=== PATIENT | male | born 1965 | race African-American/Black ===

== ENCOUNTER 2019-04-09 21:12 | Emergency (ER) | payer MEDICARE ==
--- NOTE | 2019-04-09 21:54 | ED ---
Syncope/Near Syncope - HPI Summary HPI Summary: A 54 y/o male brought in by [facility] ambulance and accompanied by brother presents to [facility] with a chief complaint of syncope today. The patient rated his pain as a 0/10 in severity. He has a Hx of vertigo and says that out of nowhere he had to hold onto something because his vertigo came on suddenly. He denies having vertigo currently. He denies any headache, cough, congestion, runny nose, sore throat, SOB, palpitations, dysuria, back pain, rashes, fevers, abdominal pain, or urinary incontinence. The patient has chronic swelling of his legs. He claims that he eats and drinks water normally. He denies smoking or drinking. He is on Meclizine and denies taking bloodthinners. He has a Hx of glaucoma and HTN and takes his BP medications. He denies a Hx of DC. He denies smoking or EtOH use. [facility]. - History Of Current Complaint Chief Complaint: EDSyncope Hx Obtained From: Patient, Family/Lpn Care Manager, EMS Onset/Duration: Sudden Onset, Resolved Timing: Intermittent Episode Lasting Context: Witnessed Activity At Onset: Other - standing Associated Head Trauma: No Aggravating Factor(s): Nothing Alleviating Factor(s): Nothing Associated Signs And Symptoms: Negative - Allergies/Home Medications Allergies/Adverse Reactions: Allergies Allergy/AdvReac Type Severity Reaction Status Date / Time No Known Allergies Allergy Verified 01/11/16 13:35 Home Medications: Home Medications Loratadine [Allergy Relief] 10 mg PO PRN 04/09/19 [History] Tamsulosin CAP* [Flomax CAP*] 0.4 mg PO DAILY 04/09/19 [History Confirmed ] PMH/Surg Hx/FS Hx/Imm Hx Cardiovascular History: Denies: Hx Myocardial Infarction Sensory History: Reports: Hx Glaucoma Neurological History: Reports: Other Neuro Impairments/Disorders - vertigo Infectious Disease History: No Infectious Disease History: Denies: Traveled Outside the [place] in Last 30 Days - Family History Known Family History: Negative: Blood Disorder - Social History Alcohol Use: None Hx Substance Use: No Substance Use Type: Reports: None Hx Tobacco Use: No Review of Systems Negative: Fever ENT: Negative - congestion, runny nose Negative: Sore Throat Negative: Palpitations, Chest Pain Negative: Shortness Of Breath, Cough Negative: Abdominal Pain Negative: dysuria, hematuria, incontinence Positive: Edema. Negative: Myalgia Negative: Rash Positive: Syncope. Negative: Headache All Other Systems Reviewed And Are Negative: Yes Physical Exam - Summary Physical Exam Summary: Constitutional: Well-developed, Well-nourished, Alert. (-) Distressed Skin: Warm, Dry HENT: Normocephalic; Atraumatic Eyes: Conjunctiva normal Neck: Musculoskeletal ROM normal neck. (-) JVD, (-) Stridor, (-) Tracheal deviation, no neck pain, no midline C-spine tenderness Cardio: tachycardic, regular S1 S2, Heart sounds normal; Intact distal pulses; The pedal pulses are 2+ and symmetric. Radial pulses are 2+ and symmetric. Pulmonary/Chest wall: Effort normal. (-) Respiratory distress, (-) Wheezes, (-) Rales Abd: Soft, (-) tenderness, (-) Distension, (-) Guarding, (-) Rebound, belly protuberant secondary to obesity Musculoskeletal: (-) Edema Neuro: Alert, Oriented x3, coordination intact, no pronator drift Psych: Mood and affect Normal Triage Information Reviewed: Yes Vital Signs On Initial Exam: Initial Vitals Temp Pulse Resp BP Pulse Ox 100.9 F 100 22 178/100 93 04/09/19 21:23 04/09/19 21:23 04/09/19 21:23 04/09/19 21:23 04/09/19 21:23 Vital Signs Reviewed: Yes - Sharon Coma Scale Best Eye Response: 4 - Spontaneous Best Motor Response: 6 - Obeys Commands Best Verbal Response: 5 - Oriented Coma Scale Total: 15 Diagnostics - Vital Signs Vital Signs Temp Pulse Resp BP Pulse Ox 04/09/19 21:23 100.9 F 100 22 178/100 93 - Laboratory Result Diagrams: 04/09/19 22:06 04/09/19 22:06 Lab Statement: Any lab studies that have been ordered have been reviewed, and results considered in the medical decision making process. - Radiology CXR Radiology Interpretation Completed By: ED Physician Summary of Radiographic Findings: Cardiomegaly. No obvious consolidations. No obvious effusions. Pending official imaging report. - CT Brain CT Interpretation Completed By: Radiologist Summary of CT Findings: No acute intracranial abnormality. ED physician has reviewed this imaging report. - EKG 22:31 Cardiac Rate: NL - 95 bpm EKG Rhythm: Sinus Rhythm ST Segment: Non-Specific Summary of EKG Findings: An EKG at 22:31 reveals NSR at 95 bpm, nonspecific ST segment, borderline QT. No STEMI. Re-Evaluation - Re-Evaluation First Eval Re-Evaluation Time: 00:10 Change: Improved Comment: The patient has been persistently asymptomatic since before his arrival in the ED. His HR has been in the 80s and his BP has been around 150s/ 90s. He has longstanding HTN. His bilateral ears and TMs are normal. The patient is requesting discharge. Course/Dx Course Of Treatment: A 54 y/o male brought in by [facility] and accompanied by brother presents to [facility] with a chief complaint of syncope today. The physical exam revealed that the patient was tachycardic but had regular S1 S2, belly protuberant secondary to obesity, coordination intact, no pronator drift, no neck pain, no midline C-spine tenderness. Bloodwork, chemistries and urines obtained and are WNL. Brain CT impression: No acute intracranial abnormality. In the ED course the patient was given Lactated Ringers IV and Reglan IV. CXR impression: Cardiomegaly. No obvious consolidations. No obvious effusions. An EKG at 22:31 reveals NSR at 95 bpm, nonspecific ST segment, borderline QT. No STEMI. The patient has been persistently asymptomatic since before his arrival in the ED. His HR has been in the 80s and his BP has been around 150s/90s. He has longstanding HTN. His bilateral ears and TMs are normal. The patient is requesting discharge. The patient will be discharged and his brother will make sure that he follows up with his PCP. The patient is agreeable with this plan. - Diagnoses Provider Diagnoses: Vertigo Discharge - Sign-Out/Discharge Documenting (check all that apply): Patient Departure - DC Patient Received Moderate/Deep Sedation with Procedure: No - Discharge Plan Condition: Good Disposition: HOME Patient Education Materials: Vertigo (ED) Referrals: Harriet Crespo MD [Primary Care Provider] - - Billing Disposition and Condition Condition: GOOD Disposition: Home - Attestation Statements Document Initiated by Scribe: Yes Documenting Scribe: Julian Pham Provider For Whom Scribe is Documenting (Include Credential): Marty Harmon MD Scribe Attestation: I, Julian Pham, scribed for Marty Harmon MD on 04/10/19 at 0605. Scribe Documentation Reviewed: Yes Provider Attestation: The documentation as recorded by the scribe, Julian Pham accurately reflects the service I personally performed and the decisions made by me, Marty Harmon MD Status of Scribe Document: Viewed
[2019-04-09] MEDS ORDERED: Metoclopramide IV* 5 MG/ML 2 ML VIAL IV SLOW PU ONE (21:55)
[2019-04-09] MEDS ORDERED: Lactated Ringers 1000 ML Bag* 1,000 ML IV ONE (22:00)
[2019-04-09 22:16] LABS: ABS Basophils 0.1 10^3/ul (0-0.2); ABS Eosinophils 0.3 10^3/ul (0-0.6); ABS Lymphocytes 1.9 10^3/ul (1.0-4.8); ABS Monocytes 0.5 10^3/ul (0-0.8); ABS Neutrophils 3.9 10^3/ul (1.5-7.7); Eosinophil % 3.9 %; Hematocrit 40 % (42-52); Hemoglobin 13.3 g/dL (14.0-18.0); Lymphocyte % 28.5 %; Mean Corpuscular HGB Conc 33 g/dL (31-36); Mean Corpuscular Hemoglobin 23 pg (27-31); Mean Corpuscular Volume 70 fL (80-94); Mean Platelet Volume 6.8 fL (7.4-10.4); Nucleated Red Blood Cells % 0.2; Platelet Count 274 10^3/uL (150-450); Red Blood Count 5.76 10^6 /uL (4.18-5.48); Red Cell Distribution Width 20 % (10-15); White Blood Count 6.7 10^3/uL (3.5-10.8)
[2019-04-09 22:23] LABS: Activated Partial Thrombo Time 36.9 seconds (26.0-38.0)
[2019-04-09 22:30] LABS: Albumin 4.4 g/dL (3.2-5.2); Albumin/Globulin Ratio 1.3 (1-3); Calcium 9.7 mg/dL (8.6-10.3); EGFR African American 85.6 (>60); EGFR Non-African American 70.7 (>60); Globulin 3.4 g/dL (2-4); Magnesium 2.2 mg/dL (1.9-2.7); Potassium 3.3 mmol/L (3.5-5.0); Total Bilirubin 1.5 mg/dL (0.2-1.0); Total Protein 7.8 g/dL (6.4-8.9)
[2019-04-09 22:40] LABS: Urine Appearance Clear; Urine Bilirubin Negative (Negative); Urine Blood Negative (Negative); Urine Color Straw; Urine Glucose Negative (Negative); Urine Ketones Negative (Negative); Urine Nitrite Negative (Negative); Urine Protein Negative (Negative); Urine Specific Gravity 1.008 (1.010-1.030); Urine Urobilinogen Negative (Negative)
[2019-04-09 23:18] LABS: TSH (Thyroid Stimulating Horm) 1.17 mcIU/mL (0.34-5.60)
[2019-04-10 00:33] VITALS: BP 135/82
== END 2019-04-10 00:25 | disposition home or self-care (01) ==
LOC: ED 21:12
DX: R55 Syncope and collapse (principal); I10 Essential (primary) hypertension; Z79.899 Other long term (current) drug therapy
CPT/HCPCS: 36415; 70450; 71045; 80053; 81003; 83735; 83880; 84443; 84484; 85025; 85610; 85730; 93005; 96361; 96374; 99284; J2765